=== PATIENT | male | born 1975 | race Caucasian/White ===

== ENCOUNTER 2018-05-31 07:28 | Day surgery (SDC) | payer OTHER ==
[~2018-05-31 07:28] MED LIST: IBUPROFEN800 MG PO; LOSARTAN-HCTZ1 EAC2 PO; SEPTRA DS TABLE1 TAB PO; TRICOR145 MG PO
== END 2018-05-31 14:20 | disposition home or self-care (01) ==
LOC: AMB-ENDOS 07:28
DX: D13.1 Benign neoplasm of stomach (principal); K64.1 Second degree hemorrhoids

== ENCOUNTER 2018-08-13 18:01 | Inpatient (IN) | payer OTHER ==
[~2018-08-13] VITALS: Ht 170.2 cm; Wt 106.1 kg
== END 2018-08-16 17:22 | disposition home or self-care (01) | DRG 392 ==
LOC: ER 18:01 → SEC-K 08-14 11:43 → MEDI 08-15 14:07 → SURH 08-15 14:20
DX: K57.20 Diverticulitis of large intestine with perforation and abscess without bleeding (principal); K29.00 Acute gastritis without bleeding